=== PATIENT | female | born 1975 | race Caucasian/White ===

== ENCOUNTER → 2017-02-13 | Outpatient (CLI) | payer MEDICARE ==
[~2017-02-13] MED LIST: ACETAMINOPHEN PO; ACYCLOVIR200 MG PO; ALPRAZOLAM; ALPRAZOLAM PO; ALPRAZOLAM1 MG PO; BACTRIM DS TABL1 TA1 PO; BENADRYL25 MG PO; CELEXA PO; CELEXA20 MG; CETIRIZINE HCL10 MG PO; CITALOPRAM HBR40 MG PO; FLEXERIL10 M1 PO; FLEXERIL10 MG PO; LEVOTHROID88 MCG; LO/OVRAL-281 TAB PO; LORATADINE PO; LORTAB 5/500 TA1 TA1 PO; LORTAB 7.5-5001 TAB PO; LOTRISONE LOTIO30 ML TOP; MAGIC MOUTHWASH PO; MEDI-MECLIZINE25 M1 PO; MEDROL DOSEPAK4 MG PO; MOBIC15 MG PO; NORCO 7.5-3251 EACH PO; NYSTATIN-TRIAMC15 G1 TP; NYSTATIN1 EACH MC; ORUDIS75 M1 PO; PAXIL CR PO; PEPCID PO; PERMETHRIN60 GM TOP; PHENERGAN DM1 ML PO; PHENERGAN25 MG PO; PREDNISONE PO; PREVACID; PREVACID PO; PROTONIX PO; SYNTHROID PO; SYNTHROID88 MCG PO; VOLTAREN75 MG PO; ZYRTEC10 M2 PO; [UNRECOGNIZED DRUG - OTHER]
--- NOTE | ~2017-02-13 | MR103 ---
[facility] A Service of [facility] & [facility] RADIOLOGY TEXT RESULTS PATIENT: KAYLEIGH FULTON LOCATION: [facility] : 71 UNIT #: [id number] AGE: [address]: Marielos Aldana MD SEX: F ORDER DR: [id number] [address] [address] [id number] O MR#: [id number] Acc #: [id number] NAME: KAYLEIGH FULTON : 1975 SEX: F STUDY DATE/TIME: 02/13/2017 16:34 UNIT: [facility] ROOM: STUDY DESCRIPTION: MR Knee Wo Contrast Lt Attending Physician: Marielos Aldana M.D. Referring Physician: Marielos Aldana M.D. Ordering Physician: Marielos Aldana M.D. Primary Care Physician: Marielos Aldana M.D. MRI CENTER REPORT This report is preliminary unless electronic signature is present. EXAM MRI of the left knee without contrast HISTORY Left knee pain since January 25. Twisted knee stepping in hole. COMPARISON None FINDINGS Multiplanar multiecho images was performed of the left knee utilizing a high field magnet and dedicated protocol. 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 Corresponding [id number] grade chondromalacia noted within the lateral femoral trochlea. Small knee effusion. No definite loose body. In the medial compartment the meniscus and articular cartilage appears normal. In the lateral compartment the meniscus and articular cartilage unremarkable. Anterior-posterior cruciate ligaments appear intact. The collateral ligaments and extensor mechanism unremarkable. Patient does demonstrate a mild lateral subluxation of the patella which may indicate a patellofemoral tracking abnormality. There is a moderate amount of prepatellar and pretibial edema. IMPRESSION 1. 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 2. Lateral subluxation of the patella may be an indicator of STS. [facility] A Service of [facility] & [facility] RADIOLOGY TEXT RESULTS PATIENT: KAYLEIGH FULTON LOCATION: [facility] #: [id number] : [birth year] UNIT #: [id number] AGE: [address]: Marielos Aldana MD SEX: F ORDER DR: patellofemoral tracking abnormality. 3. Small knee effusion. Dictated by... Bryan Gilmore M.D. THIS IS AN ELECTRONICALLY VERIFIED REPORT Bryan Gilmore M.D. at 02/15/2017 7:59 AM Joann TD: 02/14/2017 13:38 JOB #: [id number] MRI CENTER REPORT Page 1 of 1
== END | disposition home or self-care (01) ==
LOC: SMRI 14:28
DX: M25.562 Pain in left knee (principal); M22.42 Chondromalacia patellae, left knee; M25.462 Effusion, left knee
CPT/HCPCS: 73721